=== PATIENT | male | born 1995 | race Caucasian/White ===

== ENCOUNTER 2019-02-12 09:04 | Emergency (ER) ==
[~2019-02-12] VITALS: Ht 185.4 cm; Wt 81.4 kg
[2019-02-12 09:57] LABS: PH, VENOUS 7.326 pH (7.320-7.420)
[2019-02-12 10:05] LABS: BASOPHILS # (AUTO) 0.02 x10^3/uL (0-0.1); BASOPHILS % (AUTO) 0 % (0-1); EOSINOPHILS # (AUTO) 0.08 x10^3/uL (0-0.4); EOSINOPHILS % (AUTO) 2 % (1-7); LYMPHOCYTES # (AUTO) 1.73 x10^3/uL (1-3.4); LYMPHOCYTES % (AUTO) 31 % (22-44); MD NO; MEAN CORPUSCULAR HEMOGLOBIN 30.4 pg (27.5-34.5); MEAN CORPUSCULAR HGB CONC 34.5 g/dL (33.2-36.2); MEAN CORPUSCULAR VOLUME 88.2 fL (81-97); MONOCYTES # (AUTO) 0.41 x10^3/uL (0.2-0.8); MONOCYTES % (AUTO) 7 % (2-9); NEUTROPHILS # (AUTO) 3.36 x10^3/uL (1.8-6.8); NEUTROPHILS % (AUTO) 60 % (42-75); PLATELET COUNT 233 x10^3/uL (130-400); RED BLOOD COUNT 5.39 x10^6/uL (4.38-5.82); RED CELL DISTRIBUTION WIDTH 11.9 % (9.4-14.8)
[2019-02-12 10:11] LABS: ALANINE AMINOTRANSFERASE 44 U/L (12-78); ALBUMIN 4.1 g/dL (3.4-5.0); ANION GAP 12 mmol/L (5-15); CALCIUM 9.1 mg/dL (8.5-10.1); CHLORIDE 98 mmol/L (98-107); CREATININE 0.99 mg/dL (0.7-1.3)
[2019-02-12 10:13] LABS: ALKALINE PHOSPHATASE 149 U/L (45-117); BILIRUBIN,TOTAL 1.3 mg/dL (0.2-1.0); TOTAL PROTEIN 8.2 g/dL (6.4-8.2)
--- NOTE | 2019-02-12 10:15 | NUR ---
PT SITTING UP IN BED, AMBULATES TO AND FROM BATHROOM INDEPENDENTLY FOR URINE SPECIMEN. NAD NOTED AT THIS TIME. UA SENDING TO LAB.
[2019-02-12 10:42] LABS: MICROSCOPIC NOT IND
[2019-02-12 10:49] LABS: CULTURE INDICATED? NO
[2019-02-12 10:56] LABS: ACETONE, SERUM Moderate(40mg/dL) mg/dL (Negative)
--- NOTE | 2019-02-12 11:01 | NUR ---
PO FLUIDS GIVEN. AWAITING LABS. NAD NOTED AT THIS TIME. PARENTS REMAIN AT BEDSIDE.
--- NOTE | 2019-02-12 11:29 | NUR ---
PT CHART UP FOR RECHECK.
--- NOTE | 2019-02-12 12:08 | NUR ---
ERMD IN TO RECHECK PT AND DISCUSS POC. PARENTS AT BEDSIDE, APPROPRIATE QUESTIONS ASKED FOR COMPLETE UNDERSTANDING.
[2019-02-12 12:18] VITALS: BP 116/76
== END 2019-02-12 12:25 | disposition home or self-care (01) ==
LOC: ED 11:01
DX: E11.65 Type 2 diabetes mellitus with hyperglycemia (principal)
CPT/HCPCS: 36415; 71046; 80053; 81003; 82010; 82803; 82962; 83036; 83735; 85025; 99284